=== PATIENT | male | born 1985 | race Caucasian/White ===

== ENCOUNTER 2016-12-26 14:34 | Emergency (ER) | payer MEDICAID ==
[2016-12-26 14:43] VITALS: RESP 18; TEMP 98.4
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
[2016-12-26 15:33] LABS: % IMMATURE GRANULYOCYTES 0.2 % (0.0-1.1); ABSOLUTE IMMATURE GRANULOCYTES 0.01 10^3/uL (0.00-0.10); ADD DIFF? NO; ADD MORPH? NO; ADD SCAN? NO; ATYPICAL LYMPHOCYTE FLAG 0 (0-99); FRAGMENT RBC FLAG 0 (0-99); HEMATOCRIT 41.6 % (40.0-51.0); HEMOGLOBIN 14.7 g/dL (13.7-17.5); LEFT SHIFT FLG 0 (0-99); LIPEMIA HEMOLYSIS FLAG 90 (0-99); MEAN CELL HEMOGLOBIN 33.1 pg (27.9-34.1); MEAN CELL HEMOGLOBIN CONCENTR. 35.3 g/dL (32.4-36.7); MEAN CELL VOLUME 93.7 fL (81.5-99.8); MEAN PLATELET VOLUME 9.2 fL (8.7-11.7); PLATELET CLUMPS FLAG 0 (0-99); PLATELET COUNT 292 10^3/uL (150-400); RED BLOOD CELL COUNT 4.44 10^6/uL (4.40-6.38); RED CELL DISTRIBUTION WIDTH 12.1 % (11.5-15.2)
[2016-12-26 15:41] LABS: ANION GAP 15 mEq/L (8-16); CALCIUM 10.1 mg/dL (8.5-10.4); CARBON DIOXIDE 25 mEq/l (22-31); CHLORIDE 101 mEq/L (97-110); ETHANOL SERUM < 10 mg/dL (0-10); GLOMERULAR FILTRATION RATE > 60; GLUCOSE 100 mg/dL (70-100); POTASSIUM 4.2 mEq/L (3.5-5.2); SODIUM 141 mEq/L (134-144)
[2016-12-26] MEDS ORDERED: OXYBUTYNIN CHLORIDE 5 MG TAB PO ONE (19:16)
[2016-12-26] MEDS ORDERED: buPROPion 100 MG TAB PO ONE (19:17)
[2016-12-26] MEDS ORDERED: TRIHEXYPHENIDYL HCL 5 MG TAB PO ONE (19:21)
[2016-12-26] MEDS ORDERED: GABAPENTIN 100 MG CAP PO ONE (19:23)
[2016-12-26] MEDS ORDERED: GABAPENTIN 300 MG CAP ONE (19:30)
[2016-12-26 23:13] VITALS: O2SAT 96
[2016-12-26 23:27] VITALS: BP 112/66; PULSE 94
[2016-12-27] MEDS ORDERED: GABAPENTIN 300 MG CAP PO ONE (19:47)
== END 2016-12-26 23:28 ==
DX: F32.2 Major depressive disorder, single episode, severe without psychotic features (principal); F17.200 Nicotine dependence, unspecified, uncomplicated
CPT/HCPCS: 80305; G0480